=== PATIENT | male | born 1960 | race Caucasian/White ===

== ENCOUNTER → 2021-02-26 | Outpatient (CLI) | payer BC | LOC: HEART 5 13:03 | DX: I83.11 Varicose veins of right lower extremity with inflammation (principal); I83.12 Varicose veins of left lower extremity with inflammation; R60.9 Edema, unspecified | CPT/HCPCS: 93970 ==

== ENCOUNTER → 2021-03-23 | Outpatient (CLI) | payer BC | LOC: EXRD 03-20 08:30 → KOH-I 03-20 10:30 → EXRD 03-20 10:30 → US 10:30 → EXRD 10:30 → US 10:36 | DX: R09.89 Other specified symptoms and signs involving the circulatory and respiratory systems (principal) | CPT/HCPCS: 93926; 93971 ==